=== PATIENT | male | born 1990 | race Two or more races ===

== ENCOUNTER 2021-08-30 20:08 | Inpatient (IN) | payer OTHER ==
[~2021-08-30] VITALS: Ht 182.9 cm; Wt 102.3 kg
[2021-08-30] MEDS ORDERED: KETOROLAC TROMETHAMINE 30 MG/ML VIAL IVP ONE (23:00)
[2021-08-30] MEDS ORDERED: SODIUM CHLORIDE 0.9% 1,000 ML IV ONE (23:00)
[2021-08-30] MEDS ORDERED: 0.9% SODIUM CHLORIDE 10 ML SYRINGE IVP PRN (23:00)
[2021-08-30] MEDS ORDERED: CefTRIAXone 1 GM/DEXTROSE 50 ML IV ONE (23:00)
[2021-08-30 23:12] LABS: COVID AG,FIA SOURCE NASAL SWAB
[2021-08-30 23:21] LABS: APPEARANCE,URINE CLEAR (CLEAR); BILIRUBIN,URINE NEGATIVE (NEGATIVE); GLUCOSE, URINE (UA) NEGATIVE (NEGATIVE); KETONES,URINE 40-60 mg/dL (NEGATIVE); LEUKOCYTE ESTERASE ,URINE NEGATIVE (NEGATIVE); NITRATE,URINE NEGATIVE (NEGATIVE); OCCULT BLOOD,URINE NEGATIVE (NEGATIVE); PH,URINE 6.5 (5.0-8.0); PROTEIN,URINE TRACE mg/dL (NEGATIVE); SPECIFIC GRAVITIY, URINE 1.031 (1.003-1.030)
[2021-08-31 00:21] LABS: BASOPHILS % (AUTO) 0.6 % (0.0-2.0); EOSINOPHILS % (AUTO) 0 % (1.0-6.0); HEMATOCRIT 41.9 % (41-53); HEMOGLOBIN 14.2 g/dL (13.5-17.5); LYMPHOCYTES # (AUTO) 3.4 K/uL (1.0-4.8); LYMPHOCYTES % (AUTO) 19.4 % (22.0-44.0); MEAN CORPUSCULAR HEMOGLOBIN 30.1 pg (26.0-34.0); MEAN CORPUSCULAR HGB CONC 33.9 G/dL (31.0-37.0); MEAN CORPUSCULAR VOLUME 89 fL (80-100); MONOCYTES # (AUTO) 1.8 K/uL (0.1-1.0); MONOCYTES % (AUTO) 10.1 % (2.0-9.0); NEUTROPHILS # (AUTO) 12.3 K/uL (1.8-7.7); NEUTROPHILS % (AUTO) 69.9 % (40.0-70.0); PLATELET COUNT (AUTO) 262 K/uL (150-450); RED BLOOD CELL COUNT(AUTO) 4.72 MIL/uL (4.50-5.90)
[2021-08-31 00:34] LABS: ANION GAP 13 mmol/L (8-16); CARBON DIOXIDE 27 mmol/L (22-29); CHLORIDE 98 mmol/L (98-107); CREATININE 0.65 mg/dL (0.60-1.30); GLUCOSE,RANDOM 101 mg/dL (70-110); POTASSIUM 3.6 mmol/L (3.5-5.1); SODIUM SERUM 138 mmol/L (136-145); UREA NITROGEN, BLOOD 16 mg/dL (7-18)
[2021-08-31 00:41] LABS: GLOMERULAR FILTR. RATE CALC > 60 mL/min (>60)
[2021-08-31 00:45] LABS: LACTIC ACID 0.8 mmol/L (0.4-2.0)
[2021-08-31 00:52] LABS: ALANINE AMINOTRANSFERASE 115 U/L (12-78); ALBUMIN 3.5 g/dL (3.4-5.0); ALKALINE PHOSPHATASE 87 U/L (46-116); ASPARTATE AMINOTRANSFERASE 40 U/L (15-37); TOTAL PROTEIN, SERUM 7.7 g/dL (6.4-8.2)
[2021-08-31 01:31] LABS: ERYTHROCYTE SEDIMENTATION RATE 6 MM/HR (0-15)
[2021-08-31] MEDS ORDERED: ONDANSETRON HCL 4 MG/2 ML VIAL IVP PRN (03:45)
[2021-08-31] MEDS ORDERED: VANCOMYCIN HCL 1.5 GM in DEXTROSE 5%-WATER 250 ML IV ONE (04:30)
[2021-08-31] MEDS: MORPHINE SULFATE 4 MG/ML SYRINGE IVP PRN ×2 (05:06→09:34)
[2021-08-31] MEDS: HEPARIN SODIUM,PORCINE 5,000 UNITS/ML VIAL SQ SCH ×3 (08:29→23:17)
[2021-08-31 11:14] VITALS: BP 115/62
[2021-08-31] MEDS ORDERED: SODIUM CHLORIDE 0.9% 250 ML IV ONE (12:14)
[2021-08-31] MEDS: MORPHINE SULFATE 2 MG/ML SYRINGE IVP PRN ×3 (13:07→21:52)
[2021-08-31] MEDS ORDERED: PNEUMOCOCCAL VACCINE POLYVALENT 0.5 ML VIAL [PPSV23] IM. ONE (15:00)
[2021-08-31] MEDS: VANCOMYCIN HCL 1.5 GM in DEXTROSE 5%-WATER 250 ML IV SCH ×2 (15:22→23:17)
[2021-08-31 17:13] VITALS: BP 136/54
[2021-08-31] MEDS: ACETAMINOPHEN 325 MG TABLET PO PRN (20:07)
[2021-08-31 20:57] VITALS: BP 131/74
[2021-08-31] MEDS: CefTRIAXone 1 GM/DEXTROSE 50 ML IV SCH (23:16)
[2021-09-01] MEDS: ACETAMINOPHEN 325 MG TABLET PO PRN ×4 (00:16→23:43)
[2021-09-01 05:55] VITALS: BP 128/64
[2021-09-01] MEDS: MORPHINE SULFATE 2 MG/ML SYRINGE IVP PRN ×4 (05:55→21:09)
[2021-09-01 06:16] LABS: ANION GAP 6 mmol/L (8-16); CALCIUM, TOTAL 8.8 mg/dL (8.8-10.5); CARBON DIOXIDE 31 mmol/L (22-29); CHLORIDE 103 mmol/L (98-107); CREATININE 0.68 mg/dL (0.60-1.30); GLUCOSE,RANDOM 88 mg/dL (70-110); POTASSIUM 4.2 mmol/L (3.5-5.1); SODIUM SERUM 140 mmol/L (136-145); UREA NITROGEN, BLOOD 11 mg/dL (7-18); VANCOMYCIN,RANDOM 16.6 mcg/mL (25.0-50.0)
[2021-09-01 06:17] LABS: GLOMERULAR FILTR. RATE CALC > 60 mL/min (>60)
[2021-09-01] MEDS: VANCOMYCIN HCL 1.5 GM in DEXTROSE 5%-WATER 250 ML IV SCH (06:32)
[2021-09-01 07:52] VITALS: BP 117/67
[2021-09-01] MEDS ORDERED: SODIUM CHLORIDE 0.9% 250 ML IV ONE (07:53)
[2021-09-01] MEDS: HEPARIN SODIUM,PORCINE 5,000 UNITS/ML VIAL SQ SCH ×3 (07:59→23:42)
[2021-09-01 16:00] VITALS: BP 142/80
[2021-09-01 20:15] VITALS: BP 114/59
[2021-09-01] MEDS: DOXYCYCLINE HYCLATE 100 MG TABLET PO SCH (21:03)
[2021-09-01] MEDS: CefTRIAXone 1 GM/DEXTROSE 50 ML IV SCH (23:42)
[2021-09-02 00:47] VITALS: BP 123/57
[2021-09-02] MEDS: MORPHINE SULFATE 2 MG/ML SYRINGE IVP PRN ×2 (01:11→09:02)
[2021-09-02 05:50] VITALS: BP 115/62
[2021-09-02 06:27] LABS: BASOPHILS % (AUTO) 0.5 % (0.0-2.0); HEMATOCRIT 41.2 % (41-53); HEMOGLOBIN 14.1 g/dL (13.5-17.5); LYMPHOCYTES # (AUTO) 3.3 K/uL (1.0-4.8); LYMPHOCYTES % (AUTO) 44.8 % (22.0-44.0); MEAN CORPUSCULAR HEMOGLOBIN 30.6 pg (26.0-34.0); MEAN CORPUSCULAR HGB CONC 34.1 G/dL (31.0-37.0); MEAN CORPUSCULAR VOLUME 90 fL (80-100); NEUTROPHILS % (AUTO) 40.7 % (40.0-70.0); PLATELET COUNT (AUTO) 265 K/uL (150-450); RED CELL DISTRIBUTION WIDTH 13.2 % (11.5-14.5)
[2021-09-02 06:35] LABS: ANION GAP 5 mmol/L (8-16); CARBON DIOXIDE 31 mmol/L (22-29); CHLORIDE 102 mmol/L (98-107); CREATININE 0.87 mg/dL (0.60-1.30); GLUCOSE,RANDOM 87 mg/dL (70-110); POTASSIUM 4.3 mmol/L (3.5-5.1); SODIUM SERUM 138 mmol/L (136-145); UREA NITROGEN, BLOOD 14 mg/dL (7-18)
[2021-09-02 07:18] LABS: GLOMERULAR FILTR. RATE CALC > 60 mL/min (>60)
[2021-09-02 07:57] VITALS: BP 110/56
[2021-09-02] MEDS: DOXYCYCLINE HYCLATE 100 MG TABLET PO SCH (08:57)
[2021-09-02] MEDS: HEPARIN SODIUM,PORCINE 5,000 UNITS/ML VIAL SQ SCH (08:57)
[2021-09-02] MEDS ORDERED: DOXY-354 PO (14:04)
== END 2021-09-02 16:00 | DRG 728 ==
LOC: EMS 20:08 → 6S 08-31 10:55
PROVIDERS: ADMIT Internal Medicine; ATTEND Internal Medicine
DX: N49.2 Inflammatory disorders of scrotum (principal); R65.10 Systemic inflammatory response syndrome (SIRS) of non-infectious origin without acute organ dysfunction; I10 Essential (primary) hypertension; F17.210 Nicotine dependence, cigarettes, uncomplicated; Z20.822 Contact with and (suspected) exposure to COVID-19; R74.8 Abnormal levels of other serum enzymes; E66.9 Obesity, unspecified; Z68.30 Body mass index [BMI] 30.0-30.9, adult
CPT/HCPCS: 76870; 80048; 80053; 80202; 81003; 83605; 85025; 85651; 87040; 87070; 87205; 99285; J0696; J1644; J1885; J2270; J3370; J7030; J7050; J7060